=== PATIENT | male | born 1970 | race Caucasian/White ===

== ENCOUNTER 2022-04-23 12:54 | Emergency (ER) | payer OTHER | END 2022-04-23 13:28 | disposition left against medical advice (07) | LOC: FER 12:54 | DX: S39.91XA Unspecified injury of abdomen, initial encounter (principal); Z53.29 Procedure and treatment not carried out because of patient's decision for other reasons; V47.5XXA Car driver injured in collision with fixed or stationary object in traffic accident, initial encounter; Z28.310 Unvaccinated for COVID-19 | CPT/HCPCS: 99281 ==